=== PATIENT | female | born 1955 | race Caucasian/White ===

== ENCOUNTER 2024-02-25 20:53 | Emergency (ER) | payer MEDICARE, OTHER ==
[2024-02-25] MEDS: Albuterol/Ipratropium 3.0-0.5 MG/3 ML Neb Soln NEB ONE (21:16)
[2024-02-25 21:46] LABS: BASOPHILS ABSOLUTE AUTO 0.03 K/uL (0.02-0.10); BASOPHILS PERCENT AUTO 0.4 % (0.0-0.5); EOSINOPHILS ABSOLUTE AUTO 0.11 K/uL (0.04-0.40); EOSINOPHILS PERCENT AUTO 1.3 % (1.0-5.0); HEMATOCRIT 38.8 % (37.0-47.0); HEMOGLOBIN 13.1 g/dL (11.5-16.5); LYMPHOCYTES ABSOLUTE AUTO 1.22 K/uL (1.50-4.00); LYMPHOCYTES PERCENT AUTO 14.4 % (20.0-40.0); MEAN CORPUSCULAR HEMOGLOBIN 30.6 pg (27.0-32.0); MEAN CORPUSCULAR HGB CONC 33.8 g/dL (31.0-35.0); MEAN CORPUSCULAR VOLUME 91 fL (76-96); MEAN PLATELET VOLUME 9.9 fL (6.0-10.0); MONOCYTES ABSOLUTE AUTO 1.02 K/uL (0.20-0.80); MONOCYTES PERCENT AUTO 12.1 % (3.0-10.0); NEUTROPHILS ABSOLUTE AUTO 6.07 K/uL (2.00-7.50); NEUTROPHILS PERCENT AUTO 71.8 % (45.0-70.0); PLATELET COUNT,PLT 217 K/uL (150-500); RED BLOOD CELL COUNT 4.28 M/uL (3.80-5.80); RED CELL DISTRIBUTION WIDTH 12.3 % (11.0-16.0); WHITE BLOOD CELL COUNT,WBC 8.5 K/uL (4.0-11.0)
[2024-02-25 21:56] LABS: BICARBONATE,VENOUS 30.9 mmol/L (23.0-28.0); PCO2 VENOUS 63.1 mm/Hg (41-51)
[2024-02-25 21:57] LABS: BASE EXCESS VENOUS 4.5 mm/L (-2-3)
[2024-02-25 22:26] LABS: A/G RATIO 1.1 (0.8-2.0); ALBUMIN 3.4 g/dL (3.4-5.0); ANION GAP 8.9 mmol/L (5.0-15.0); BILIRUBIN TOTAL 0.5 mg/dL (0.0-1.0); BUN/CREATININE RATIO 10.3 (6-25); CARBON DIOXIDE,CO2 33.8 mmol/L (21.0-32.0); CREATININE 0.58 mg/dL (0.55-1.02); EST CRCL DRUG DOSING (CG) 89.32 mL/min; POTASSIUM,K 3.7 mmol/L (3.5-5.1); PROTEIN TOTAL,TP 6.4 g/dL (6.4-8.2)
[2024-02-25] MEDS: methylPREDNISolone Sodium Succinate 125 MG/2 ML SDV IVPUSH ONE (22:46)
[2024-02-25] MEDS ORDERED: predniSONE 10 MG Tab ONE (23:00)
[2024-02-25] MEDS ORDERED: LORazepam 1 MG Tab ONE (23:00)
[2024-02-27] MEDS: Albuterol/Ipratropium 3.0-0.5 MG/3 ML Neb Soln ONE (08:48)
[2024-02-27] MEDS: methylPREDNISolone Sodium Succinate 125 MG/2 ML SDV ONE (08:48)
[2024-02-27] MEDS: LORazepam 1 MG Tab ONE (08:48)
== END 2024-02-25 23:05 | disposition home or self-care (01) ==
LOC: LB.ED 20:53
DX: J44.9 Chronic obstructive pulmonary disease, unspecified (principal); F41.9 Anxiety disorder, unspecified; Z87.891 Personal history of nicotine dependence
CPT/HCPCS: 36415; 71045; 80053; 82803; 83880; 85025; 85379; 94640; 96374; 99285; J2919; A9270-GY; J7512; J7620